=== PATIENT | male | born 1965 | race African-American/Black ===

== ENCOUNTER 2017-04-17 12:42 | Emergency (ER) | payer OTHER ==
[~2017-04-17] VITALS: Ht 185.4 cm; Wt 111.1 kg
[~2017-04-17 12:42] MED LIST: CIALIS20 MG PO; EPIPEN ADULT A0.3 MG IM
--- NOTE | 2017-04-17 14:22 | ED UPPER/LOWER EXTREMITY COMPL ---
History of Present Illness General Chief Complaint: Lower Extremity Problems Stated Complaint: PT IS HAVING PAIN IN THE LT LEG Source: patient Exam Limitations: no limitations Vital Signs & Intake/Output Vital Signs & Intake/Output Vital Signs Date Time Temp Pulse Resp B/P B/P Pulse O2 O2 Flow FiO2 Mean Ox Delivery Rate 04/17 1618 98.5 85 12 134/78 95 Room Air 04/17 1308 98.7 87 18 142/97 98 Room Air Room Air Allergies Coded Allergies: MDX - Lactose (LACTOSE) (GI UPSET 04/23/14) MDX - NUTS (NUTS) (ANAPHYLAXIS 04/23/14) Reconcile Medications Epinephrine (Epipen 2-Sean) 0.3 MG/0.3 ML AUTO.INJCT 0.3 MG IM PRN ANAPHYLAXIS (Reported) Tadalafil (Cialis) 20 MG TABLET 1 TAB PO PRN SEXUAL HEALTH (Reported) Triage Note: 51 YEAR OLD MALE REPORTS FEELING HARDNESS TO VEIN IN LEG LEFT. PT REPORTS HISTORY OF VARICOSE VEINS AND WANTS TO BE CHECKED FOR A BLOOD CLOT. DENIES PAIN TO LEG. Triage Nurses Notes Reviewed? yes Onset: Gradual Duration: constant Timing: recent history Severity: moderate Severity Numbers: 5 HPI: Patient is a 51-year-old male with a past medical history of varicose veins and multiple varicose treatment procedures by his vascular surgeon Dr. Chaney last procedure was approximately 6 weeks ago who presents emergency room stating that yesterday he noted a palpable tender cordlike region to his left calf where he states that mild palpation and ambulation makes worse to the region. Denies any pedal edema or swelling or paresthesia denies any mechanism of injury denies any fever chills or swelling denies any shortness of breath chest pain hemoptysis (Champ Rosales) Past History Travel History Traveled to [place] past 21 day No Medical History Any Pertinent Medical History? see below for history Neurological: NONE EENT: NONE Cardiovascular: NONE Respiratory: NONE Gastrointestinal: NONE Hepatic: NONE Renal: NONE Musculoskeletal: NONE Psychiatric: NONE Endocrine: NONE Blood Disorders: NONE Cancer(s): NONE C[employer] SPECIAL[employer] FOREIGN FOOD/Reproductive: NONE Other Medical Hx: VARICOSE VEINS Surgical History Surgical History: non-contributory Psychosocial History What is your primary language Monegasque Tobacco Use: Never used Family History Hx Contributory? No (Champ Rosales) Review of Systems Review of Systems Constitutional: Reports: no symptoms. EENTM: Reports: no symptoms. Respiratory: Reports: no symptoms. Cardiovascular: Reports: no symptoms. Gastrointestinal/Abdominal: Reports: no symptoms. Genitourinary: Reports: no symptoms. Musculoskeletal: Reports: see HPI, muscle pain. Skin: Reports: no symptoms. Neurological/Psychological: Reports: no symptoms. Hematologic/Endocrine: Reports: no symptoms. Immunological: Reports: no symptoms. All Other Systems: Reviewed and Negative (Champ Rosales) Physical Exam Physical Exam General Appearance: no apparent distress, alert, comfortable Head: atraumatic Eyes: Bilateral: normal appearance. Ears, Nose, Throat: hearing grossly normal Neck: normal inspection Cardiovascular/Respiratory: no respiratory distress Peripheral Pulses: 2+ dorsalis pedis (L) Neurologic/Tendon: normal sensation, normal motor functions, normal tendon functions, responds to pain, no evidence tendon injury, no pulse deficit Skin: intact, normal color, warm/dry Diagram Legs Front/Back 1) NOTED LINEAR MILD SUPERFICIAL TENDER CORD LIKE STRUCTURE NO SWELLING, NO ERYTHEMA NO DISTAL EDEMA PEDAL PULSE PLUS 2 (Champ Rosales) Progress Differential Diagnosis: arterial insufficiency, cellulitis, compartment syndrome , contusion, DVT, fracture, septic arthritis, sprain, tendon injury Plan of Care: Orders Procedure Date/time Status EKG 04/17 1354 Active Differential diagnosis includes superficial thrombophlebitis or varicose vein No signs of infectious process on exam No concerns of PE Ultrasound was resulted showing concerns of superficial thrombus no concerns of DVT Discussed disposition with patient who has no questions upon discharge Diagnostic Imaging: Viewed by Me: Ultrasound. Radiology Impression: SEE COMMENTS Comments: PATIENT: BEATRIZ GRAFF PRESENT AGE: 51 PATIENT ACCOUNT NO: [id number] : 64 LOCATION: [facility] ORDERING PHYSICIAN: Champ MORGAN SERVICE DATE: 04/17/17670 EXAM TYPE: US - US-EXT BILAT VENOUS DOPPLER EXAMINATION: US TRIPLEX OF LOWER EXTREMITIES, BILATERAL CLINICAL INFORMATION: Pain COMPARISON: None TECHNIQUE: Color-flow triplex imaging with spectral analysis and compression Doppler were performed on the lower extremities. FINDINGS: Respiratory variation, normal compression and augmented flow are noted throughout the lower extremities. The visualized common femoral vein, superficial femoral vein, profunda femoral vein, popliteal vein and midcalf peroneal and posterior tibial venous segments show no evidence of deep venous thrombosis. There is thrombosis in a superficial vein in the medial aspect of the left calf. There is no Malik's cyst. IMPRESSION: 1. No evidence of deep venous thrombosis involving bilateral lower extremities. 2. Thrombosis in a superficial vein in the medial aspect of the left calf. DICTATED BY: Kevin Angel MD DATE/TIME DICTATED:04/17/171535 DESIGN MANAGER:ANDREW DATE/TIME TRANSCRIBED:04/17/171535 (Champ Rosales) Departure Departure Disposition: HOME OR SELF CARE Condition: Stable Clinical Impression Primary Impression: Superficial thrombosis of lower extremity Referrals: Shiv MOY,Dallin Bledsoe MD,Dallin Wasserman (PCP/Family) Additional Instructions: As discussed begin [id number] Tylenol for pain and inflammation begin applying warm compresses to the region to improve symptoms on Wednesday follow-up with your establish vascular surgeon Dr. Chaney, if symptoms worsen return to emergency room Departure Forms: Customer Survey General Discharge Information (Champ Rosales) PA/HEAD LINEMAN Co-Sign Statement Statement: ED Attending supervision documentation- [] I saw and evaluated the patient. I have also reviewed all the pertinent lab results and diagnostic results. I agree with the findings and the plan of care as documented in the PA's/HEAD LINEMAN's documentation. [x] I have reviewed the ED Record and agree with the PA's/HEAD LINEMAN's documentation. [] Additions or exceptions (if any) to the PAs/HEAD LINEMAN's note and plan are summarized below: [] (Neto De La Rosa DO
--- NOTE | 2017-04-17 15:55 | ULTRASOUND REPORT ---
EXAMINATION: US TRIPLEX OF LOWER EXTREMITIES, BILATERAL CLINICAL INFORMATION: Pain COMPARISON: None TECHNIQUE: Color-flow triplex imaging with spectral analysis and compression Doppler were performed on the lower extremities. FINDINGS: Respiratory variation, normal compression and augmented flow are noted throughout the lower extremities. The visualized common femoral vein, superficial femoral vein, profunda femoral vein, popliteal vein and midcalf peroneal and posterior tibial venous segments show no evidence of deep venous thrombosis. There is thrombosis in a superficial vein in the medial aspect of the left calf. There is no Malik's cyst. IMPRESSION: 1. No evidence of deep venous thrombosis involving bilateral lower extremities. 2. Thrombosis in a superficial vein in the medial aspect of the left calf.
[2017-04-17 16:18] VITALS: BP 134/78
== END 2017-04-17 16:19 ==
LOC: ERH 12:42
DX: I82.812 Embolism and thrombosis of superficial veins of left lower extremity (principal)
CPT/HCPCS: 93005; 93010; 93970